=== PATIENT | male | born 1955 | race Hispanic/Latino ===

== ENCOUNTER → 2019-04-20 | Outpatient (CLI) | payer OTHER | END | disposition home or self-care (01) | LOC: OIH 11:11 | PROVIDERS: ATTEND Internal Medicine | DX: M47.816 Spondylosis without myelopathy or radiculopathy, lumbar region (principal); M25.78 Osteophyte, vertebrae | CPT/HCPCS: 72100 ==

== ENCOUNTER → 2019-05-18 | Outpatient (CLI) | payer OTHER | END | disposition home or self-care (01) | LOC: RAH 13:26 | PROVIDERS: ATTEND Internal Medicine | DX: Z12.11 Encounter for screening for malignant neoplasm of colon (principal); I10 Essential (primary) hypertension; J44.9 Chronic obstructive pulmonary disease, unspecified | CPT/HCPCS: 71045; 82270 ==

== ENCOUNTER 2020-11-10 13:05 | Observation (INO) | payer OTHER ==
[~2020-11-10] VITALS: Ht 170.2 cm; Wt 125.3 kg
[2020-11-10 15:11] LABS: APPEARANCE,URINE Clear (CLEAR); BILIRUBIN,URINE Negative (NEGATIVE); COLOR,URINE Yellow (YELLOW); GLUCOSE, URINE (UA) Negative (NEGATIVE); KETONES,URINE Negative (NEGATIVE); LEUKOCYTE ESTERASE ,URINE Trace (NEGATIVE); NITRATE,URINE Negative (NEGATIVE); OCCULT BLOOD,URINE Large (NEGATIVE); PROTEIN,URINE Negative (NEGATIVE)
[2020-11-10 15:24] LABS: BACTERIA,URINE Rare /HPF (None Seen); RBC,URINE 26-50 /HPF (0-1); SQUAMOUS EPITHELIAL CELL,UR Rare /HPF (0-2)
[2020-11-10 15:26] LABS: MUCUS,URINE Rare LPF (None Seen)
[2020-11-10] MEDS ORDERED: SODIUM CHLORIDE 0.9% 1000ML 1,000 ML IV ONE (15:40)
[2020-11-10] MEDS ORDERED: MORPHINE SULFATE 2 MG/ML 1ML SYG ONE (15:53)
[2020-11-10] MEDS ORDERED: ONDANSETRON HCL 4 MG/2 ML VIAL ONE (15:53)
[2020-11-10 15:57] LABS: BASOPHILS % (AUTO) 0.5 % (0.0-5.0); EOSINOPHILS % (AUTO) 1.2 % (0.0-8.0); HEMATOCRIT 44.4 % (42-54); LYMPHOCYTES % (AUTO) 23.6 % (21.0-51.0); MEAN CORPUSCULAR HEMOGLOBIN 29.8 pg (27.0-33.0); MEAN CORPUSCULAR VOLUME 87.6 fL (79-99); MONOCYTES % (AUTO) 6.5 % (3.0-13.0); PLATELET COUNT (AUTO) 144 K/uL (130-400); RED BLOOD CELL COUNT(AUTO) 5.07 MIL/uL (4.50-6.20); WHITE BLOOD COUNT (AUTO) 8.4 K/uL (4.8-10.8)
[2020-11-10 16:06] LABS: CREATININE 1.4 mg/dL (0.5-1.5); POTASSIUM 3.8 mmol/L (3.5-5.1)
[2020-11-10 16:14] LABS: ALBUMIN 3.9 g/dL (3.5-5.0); BILIRUBIN,TOTAL 0.9 mg/dL (0.2-1.0); TOTAL PROTEIN, SERUM 7.7 g/dL (6.0-8.3)
[2020-11-10] MEDS ORDERED: IOHEXOL-350 75 ML VIAL IV ONE (16:42)
[2020-11-10] MEDS ORDERED: MORPHINE SULFATE 4 MG/1ML SYG IVP PRN (19:15)
[2020-11-10] MEDS: DEXTROSE 5 %-0.45 % NACL 1,000 ML IV SCH (19:15)
[2020-11-10] MEDS: CEFTRIAXONE SODIUM 1 GM IVP SCH (19:15)
[2020-11-10] MEDS: FAMOTIDINE/PF 20 MG/2 ML VIAL IV SCH (21:00)
[2020-11-10] MEDS ORDERED: PANTOPRAZOLE 40 MG/VIAL ONE (22:26)
[2020-11-10] MEDS ORDERED: ENOXAPARIN SODIUM 30 MG/0.3 ML SQ ONE (22:26)
[2020-11-10] MEDS ORDERED: CEFTRIAXONE SODIUM 1 GM ONE (22:27)
[2020-11-10] MEDS ORDERED: DEXTROSE 5 %-0.45 % NACL 1,000 ML IV ONE (22:37)
[2020-11-11] MEDS ORDERED: MORPHINE SULFATE 4 MG/1ML SYG ONE (00:09)
[2020-11-11] MEDS: DEXTROSE 5 %-0.45 % NACL 1,000 ML IV SCH ×2 (03:15→06:10)
[2020-11-11 03:20] VITALS: BP 120/79
[2020-11-11] MEDS ORDERED: FAMO-136 PO (04:29)
[2020-11-11] MEDS ORDERED: TAMS-1 PO (04:29)
[2020-11-11] MEDS ORDERED: IBUP-2070 PO (04:29)
[2020-11-11 05:37] LABS: HEMATOCRIT 41.9 % (42-54); MEAN CORPUSCULAR HEMOGLOBIN 30.2 pg (27.0-33.0); MEAN CORPUSCULAR HGB CONC 34.1 g/dL (32.0-36.0); MEAN CORPUSCULAR VOLUME 88.6 fL (79-99); RED BLOOD CELL COUNT(AUTO) 4.73 MIL/uL (4.50-6.20); WHITE BLOOD COUNT (AUTO) 9.7 K/uL (4.8-10.8)
[2020-11-11 06:10] LABS: ALBUMIN 3.5 g/dL (3.5-5.0); BILIRUBIN,TOTAL 0.7 mg/dL (0.2-1.0); CREATININE 1.6 mg/dL (0.5-1.5); POTASSIUM 4.2 mmol/L (3.5-5.1); TOTAL PROTEIN, SERUM 7.1 g/dL (6.0-8.3)
[2020-11-11 08:00] VITALS: BP 138/76
[2020-11-11] MEDS ORDERED: ENOXAPARIN SODIUM 30 MG/0.3 ML SQ SCH (09:00)
[2020-11-11] MEDS ORDERED: TAMSULOSIN HCL 0.4 MG CAP.ER.24H PO SCH ×2 (09:49→21:00)
[2020-11-11] MEDS: FAMOTIDINE/PF 20 MG/2 ML VIAL IV SCH ×2 (09:59→20:48)
[2020-11-11] MEDS: LACTULOSE 20 GM/30 ML UDCUP PO SCH ×2 (09:59→20:48)
[2020-11-11 11:51] VITALS: BP 124/76
[2020-11-11] MEDS ORDERED: ACETAMINOPHEN 325 MG TAB PO PRN (14:15)
[2020-11-11] MEDS ORDERED: HYDROMORPHONE HCL 0.5 MG/0.5 ML ML IVP PRN (14:15)
[2020-11-11] MEDS ORDERED: ONDANSETRON HCL 4 MG/2 ML VIAL IVP PRN (14:15)
[2020-11-11 16:00] VITALS: BP 116/54
[2020-11-11] MEDS: CEFTRIAXONE SODIUM 1 GM IVP SCH (18:47)
[2020-11-11 20:00] VITALS: BP 121/64
[2020-11-11 23:49] VITALS: BP 124/73
[2020-11-12 03:59] VITALS: BP 128/76
[2020-11-12 05:31] LABS: HEMATOCRIT 42.5 % (42-54); MEAN CORPUSCULAR HEMOGLOBIN 29.8 pg (27.0-33.0); MEAN CORPUSCULAR HGB CONC 33.2 g/dL (32.0-36.0); MEAN CORPUSCULAR VOLUME 89.9 fL (79-99); RED BLOOD CELL COUNT(AUTO) 4.73 MIL/uL (4.50-6.20); RED CELL DISTRIBUTION WIDTH 13.9 % (11.0-15.5); WHITE BLOOD COUNT (AUTO) 8.4 K/uL (4.8-10.8)
[2020-11-12 06:03] LABS: ALBUMIN 3.4 g/dL (3.5-5.0); BILIRUBIN,TOTAL 0.7 mg/dL (0.2-1.0); CREATININE 1.5 mg/dL (0.5-1.5); POTASSIUM 3.7 mmol/L (3.5-5.1)
[2020-11-12] MEDS ORDERED: TAMSULOSIN HCL 0.4 MG CAP.ER.24H PO SCH (21:00)
== END 2020-11-12 07:30 | disposition home or self-care (01) ==
LOC: EDH 13:05 → EDHIP 18:45 → 3AH 11-11 02:41
PROVIDERS: ADMIT Internal Medicine; ATTEND Internal Medicine
DX: R33.9 Retention of urine, unspecified (principal); N40.0 Benign prostatic hyperplasia without lower urinary tract symptoms; N23 Unspecified renal colic; N39.0 Urinary tract infection, site not specified; Z91.018 Allergy to other foods; Z91.048 Other nonmedicinal substance allergy status
CPT/HCPCS: 36415 ×3; 74177; 76705; 80053 ×3; 81001; 83690 ×3; 85025; 85027 ×2; 87088; 93005; 96361; 96372; 96374; 96375; 96376; 99285; C9113; G0378 ×36; J0696 ×2; J1650 ×2; J2270 ×2; J2405; J3490 ×2; J7030; J7042 ×2; Q9967